=== PATIENT | female | born 1970 | race Caucasian/White ===

== ENCOUNTER 2019-12-09 08:03 | Outpatient (CLI) | payer OTHER, SELFPAY ==
--- NOTE | 2019-12-09 08:24 | MM_ITS ---
WS: [id number] BILATERAL DIGITAL SCREENING MAMMOGRAPHY WITH CAD CLINICAL INFORMATION: SCREENING HISTORY: Screening mammogram. No current complaints. COMPARISON: None. TECHNIQUE: Bilateral CC and MLO views. FINDINGS: The breasts are composed of heterogeneous fibroglandular density tissue, which can limit the detectio n of small underlying mass lesions. Nodular breast tissue bilaterally. Ovoid shaped asymmetric density lower inner left breast measuring 9 mm along the left posterior nippl e line. Recommend spot compression views and ultrasound if persistent. Right breast is unremarkable. MM/[place] [id number] IMPRESSION: BI-RADS: 0-Incomplete: Need additional imaging evaluation FOLLOW UP: Need Additional Imaging
== END 2019-12-09 08:04 | disposition home or self-care (01) ==
LOC: RADSHAW 08:16
PROVIDERS: PCP Family Medicine; Visit Provider Family Medicine
DX: Z12.31 Encounter for screening mammogram for malignant neoplasm of breast (principal)
CPT/HCPCS: 77067

== ENCOUNTER 2020-01-04 09:46 | Outpatient (CLI) | payer OTHER, SELFPAY ==
--- NOTE | 2020-01-04 09:52 | US_ITS ---
WS: [id number] ADDITIONAL VIEWS LEFT MAMMOGRAM LEFT BREAST ULTRASOUND HISTORY: LT BREAST ASYMMETRY COMPARISON: 12/09/2019 LEFT MAMMOGRAM: Spot compression views and true ML. Asymmetry becomes less apparent in the anterior LEFT breast central to the nipple on compression imag ing. Probably normal fibroglandular pattern. Due to the density within the breast ultrasound will als o be performed. No distortion. LEFT BREAST ULTRASOUND 2-D and color Doppler imaging submitted. LEFT breast ultrasound is directed to the 6:00 axis. There is an ovoid cyst measuring 5 x 2 x 4 mm. T his is in the area of the increased density and asymmetry on the mammogram. There are no suspicious m asses or calcifications. US/US breast LT limited* [id number] IMPRESSION: BI-RADS: 2-Benign FOLLOW UP: 1 Year Follow-up
== END 2020-01-04 09:47 | disposition home or self-care (01) ==
LOC: RADSHAW 09:49
PROVIDERS: PCP Family Medicine; Visit Provider Family Medicine
DX: N64.89 Other specified disorders of breast (principal)
CPT/HCPCS: 76642; 77065

== ENCOUNTER → 2020-04-11 14:11 | Outpatient (BNVA) | payer OTHER, SELFPAY | PROVIDERS: PCP Family Medicine; Visit Provider Internal Medicine | DX: M05.79 Rheumatoid arthritis with rheumatoid factor of multiple sites without organ or systems involvement (principal); R21 Rash and other nonspecific skin eruption; Z79.899 Other long term (current) drug therapy | CPT/HCPCS: 36415; 80053; 81003; 84443; 85025; 85651; 86140; 99213 ==

== ENCOUNTER → 2020-07-03 13:39 | Outpatient (BNVA) | payer OTHER, SELFPAY | PROVIDERS: PCP Family Medicine; Visit Provider Internal Medicine | DX: M05.79 Rheumatoid arthritis with rheumatoid factor of multiple sites without organ or systems involvement (principal); R76.8 Other specified abnormal immunological findings in serum; R21 Rash and other nonspecific skin eruption; Z79.899 Other long term (current) drug therapy | CPT/HCPCS: 36415; 80053; 85025; 85651; 86140; 99214 ==

== ENCOUNTER → 2020-10-04 14:49 | Outpatient (BNVA) | payer OTHER, SELFPAY | PROVIDERS: PCP Family Medicine; Visit Provider Internal Medicine | DX: M05.79 Rheumatoid arthritis with rheumatoid factor of multiple sites without organ or systems involvement (principal); R76.8 Other specified abnormal immunological findings in serum; Z79.899 Other long term (current) drug therapy | CPT/HCPCS: 99214 ==

== ENCOUNTER 2020-10-05 16:38 | Outpatient (CLI) | payer OTHER, SELFPAY ==
[2020-10-05 17:06] LABS: Basophils # 0.1 10^3/uL (0.0-0.1); Basophils % 1.3 %; Eosinophils # 0.1 10^3/uL (0.0-0.8); Eosinophils % 2.9 %; Hematocrit 45.4 % (37.0-47.0); Hemoglobin 15.5 g/dL (11.5-15.3); Lymphocytes % 45.4 %; Mean Corpuscular HGB Conc 34.1 g/dL (30.0-36.0); Mean Platelet Volume 11.6 fL (7.4-10.4); Monocytes # 0.5 10^3/uL (0.2-0.9); Monocytes % 11.2 %; Neutrophils # 1.74 10^3/uL (1.8-7.7); Nucleated Red Blood Cells % 0 %; Platelet Count 192 10^3/cmm (130-400); Red Blood Count 5.16 10^6/uL (4.1-5.3); Red Cell Distribution Width 11.7 % (12.1-15.1); White Blood Count 4.5 10^3/uL (4.0-10.0)
[2020-10-05 17:44] LABS: Alanine Aminotransferase 36 U/L (0-33); Albumin Level 4.3 g/dL (3.5-5.2); Alkaline Phosphatase 130 IU/L (35-105); Anion Gap 10.6 (5-19); Aspartate Amino Transferase 28 U/L (0-32); Blood Urea Nitrogen 11 mg/dL (6-20); C Reactive Protein 0.3 mg/L (0.0-4.9); Calcium 9.5 mg/dL (8.5-10.5); Carbon Dioxide 27 mmol/L (22-29); Chloride 103 mmol/L (98-107); Globulin 3.1 g/dL (1.3-4.6); Glomerular Filtration Rate 106.7 mL/min (90-130); Glucose 63 mg/dL (65-115); Osmolality Calculated 281 mOsm/kg (285-295); Potassium 3.6 mmol/L (3.5-5.1); Sodium 137 mmol/L (136-145); Total Bilirubin 0.3 mg/dL (0.15-1.2); Total Protein 7.4 g/dL (6.6-8.7)
[2020-10-05 18:21] LABS: Erythrocyte Sedimentation Rate 3 mm/hr (0-15)
== END 2020-10-05 16:39 | disposition home or self-care (01) ==
PROVIDERS: PCP Family Medicine; Visit Provider Internal Medicine
DX: R76.8 Other specified abnormal immunological findings in serum (principal)
CPT/HCPCS: 80053; 85025; 85651; 86140

== ENCOUNTER → 2020-12-25 10:46 | Outpatient (BNVA) | payer OTHER, SELFPAY | PROVIDERS: PCP Family Medicine; Visit Provider Internal Medicine Rheumatology | DX: Z79.899 Other long term (current) drug therapy (principal); M19.90 Unspecified osteoarthritis, unspecified site | CPT/HCPCS: 36415; 80053; 85025; 85651; 86140 ==

== ENCOUNTER → 2021-01-17 12:53 | Outpatient (BNVA) | payer OTHER, SELFPAY | PROVIDERS: PCP Family Medicine; Visit Provider Internal Medicine | DX: M05.79 Rheumatoid arthritis with rheumatoid factor of multiple sites without organ or systems involvement (principal); R76.8 Other specified abnormal immunological findings in serum; R21 Rash and other nonspecific skin eruption | CPT/HCPCS: 99213; 99214 ==

== ENCOUNTER → 2021-03-28 14:41 | Outpatient (BNVA) | payer OTHER, SELFPAY | PROVIDERS: PCP Family Medicine; Visit Provider Internal Medicine Rheumatology | DX: M05.79 Rheumatoid arthritis with rheumatoid factor of multiple sites without organ or systems involvement (principal); R76.8 Other specified abnormal immunological findings in serum; Z79.899 Other long term (current) drug therapy | CPT/HCPCS: 36415; 80053; 85025; 85651; 86140 ==

== ENCOUNTER → 2021-04-17 15:30 | Outpatient (BNVA) | payer OTHER, SELFPAY | PROVIDERS: PCP Family Medicine; Visit Provider Internal Medicine | DX: M05.79 Rheumatoid arthritis with rheumatoid factor of multiple sites without organ or systems involvement (principal); R76.8 Other specified abnormal immunological findings in serum; R53.83 Other fatigue; E56.1 Deficiency of vitamin K; I73.00 Raynaud's syndrome without gangrene | CPT/HCPCS: 99214 ==

== ENCOUNTER 2021-05-02 17:59 | Outpatient (CLI) | payer OTHER, SELFPAY ==
[2021-05-02 19:02] LABS: Alanine Aminotransferase 22 U/L (0-33); Albumin Level 4.3 g/dL (3.5-5.2); Alkaline Phosphatase 137 IU/L (35-105); Anion Gap 14.8 (5-19); Aspartate Amino Transferase 19 U/L (0-32); Blood Urea Nitrogen 12 mg/dL (6-20); Calcium 9.6 mg/dL (8.5-10.5); Carbon Dioxide 23 mmol/L (22-29); Chloride 102 mmol/L (98-107); Globulin 2.9 g/dL (1.3-4.6); Glomerular Filtration Rate 131.1 mL/min (90-130); Glucose 74 mg/dL (65-115); Osmolality Calculated 280 mOsm/kg (285-295); Potassium 3.8 mmol/L (3.5-5.1); Sodium 136 mmol/L (136-145); Thyroid Stimulating Hormone 2.04 uIU/mL (0.27-4.20); Total Bilirubin 0.3 mg/dL (0.15-1.2); Total Protein 7.2 g/dL (6.6-8.7)
== END 2021-05-02 18:00 | disposition home or self-care (01) ==
PROVIDERS: Internal Medicine; PCP Family Medicine; Visit Provider Surgery
DX: R53.83 Other fatigue (principal); R76.8 Other specified abnormal immunological findings in serum
CPT/HCPCS: 80053; 83735; 84443

== ENCOUNTER 2021-07-05 14:31 | Outpatient (CLI) | payer OTHER, SELFPAY ==
[2021-07-05 15:07] LABS: Basophils # 0.1 10^3/uL (0.0-0.1); Basophils % 1.6 %; Eosinophils # 0.1 10^3/uL (0.0-0.8); Eosinophils % 3.5 %; Hematocrit 43.1 % (37.0-47.0); Hemoglobin 14.3 g/dL (11.5-15.3); Lymphocytes # 1.5 10^3/uL (0.8-4.8); Lymphocytes % 39.3 %; Mean Corpuscular HGB Conc 33.2 g/dL (30.0-36.0); Mean Corpuscular Hemoglobin 29.2 pg (28.0-34.0); Mean Corpuscular Volume 88.1 fl (81-99); Mean Platelet Volume 11.4 fL (7.4-10.4); Monocytes # 0.4 10^3/uL (0.2-0.9); Monocytes % 11.8 %; Neutrophils # 1.63 10^3/uL (1.8-7.7); Neutrophils % 43.5 %; Nucleated Red Blood Cells % 0 %; Platelet Count 197 10^3/cmm (130-400); Red Blood Count 4.89 10^6/uL (4.1-5.3); Red Cell Distribution Width 11.9 % (12.1-15.1); White Blood Count 3.7 10^3/uL (4.0-10.0)
[2021-07-05 15:21] LABS: Alanine Aminotransferase 38 U/L (0-33); Albumin Level 4.1 g/dL (3.5-5.2); Alkaline Phosphatase 177 IU/L (35-105); Anion Gap 13.5 (5-19); Aspartate Amino Transferase 32 U/L (0-32); Blood Urea Nitrogen 9 mg/dL (6-20); C Reactive Protein 0.5 mg/L (0.0-4.9); Calcium 8.8 mg/dL (8.5-10.5); Carbon Dioxide 26 mmol/L (22-29); Chloride 102 mmol/L (98-107); Globulin 2.7 g/dL (1.3-4.6); Glomerular Filtration Rate 106.3 mL/min (90-130); Glucose 85 mg/dL (65-115); Osmolality Calculated 284 mOsm/kg (285-295); Potassium 3.5 mmol/L (3.5-5.1); Sodium 138 mmol/L (136-145); Total Bilirubin 0.3 mg/dL (0.15-1.2); Total Protein 6.8 g/dL (6.6-8.7)
[2021-07-08 12:38] LABS: Erythrocyte Sedimentation Rate 2 mm/hr (0-15)
== END 2021-07-05 14:32 | disposition home or self-care (01) ==
PROVIDERS: PCP Family Medicine; Visit Provider Internal Medicine
DX: M05.79 Rheumatoid arthritis with rheumatoid factor of multiple sites without organ or systems involvement (principal); R76.8 Other specified abnormal immunological findings in serum; Z79.899 Other long term (current) drug therapy
CPT/HCPCS: 80053; 85025; 85651; 86140

== ENCOUNTER 2022-01-16 10:41 | Outpatient (CLI) | payer OTHER, SELFPAY ==
[2022-01-16 11:10] LABS: Basophils # 0.1 10^3/uL (0.0-0.1); Basophils % 1.2 %; Eosinophils # 0.1 10^3/uL (0.0-0.8); Eosinophils % 3.1 %; Hematocrit 42.3 % (37.0-47.0); Hemoglobin 14.7 g/dL (11.5-15.3); Lymphocytes # 1.9 10^3/uL (0.8-4.8); Lymphocytes % 44.6 %; Mean Corpuscular HGB Conc 34.8 g/dL (30.0-36.0); Mean Corpuscular Hemoglobin 30.1 pg (28.0-34.0); Mean Corpuscular Volume 86.5 fl (81-99); Mean Platelet Volume 11.8 fL (7.4-10.4); Monocytes # 0.5 10^3/uL (0.2-0.9); Monocytes % 11.6 %; Neutrophils # 1.67 10^3/uL (1.8-7.7); Neutrophils % 39.3 %; Nucleated Red Blood Cells % 0 %; Platelet Count 195 10^3/cmm (130-400); Red Blood Count 4.89 10^6/uL (4.1-5.3); Red Cell Distribution Width 12.1 % (12.1-15.1); White Blood Count 4.2 10^3/uL (4.0-10.0)
[2022-01-16 11:28] LABS: Alanine Aminotransferase 39 U/L (0-33); Albumin Level 4.6 g/dL (3.5-5.2); Alkaline Phosphatase 161 IU/L (35-105); Anion Gap 13.5 (5-19); Aspartate Amino Transferase 25 U/L (0-32); Blood Urea Nitrogen 10 mg/dL (6-20); Calcium 9.5 mg/dL (8.5-10.5); Carbon Dioxide 25 mmol/L (22-29); Chloride 103 mmol/L (98-107); Globulin 2.7 g/dL (1.3-4.6); Glomerular Filtration Rate 131.1 mL/min (90-130); Glucose 91 mg/dL (65-115); Osmolality Calculated 285 mOsm/kg (285-295); Potassium 3.5 mmol/L (3.5-5.1); Sodium 138 mmol/L (136-145); Total Bilirubin 0.5 mg/dL (0.15-1.2); Total Protein 7.3 g/dL (6.6-8.7)
[2022-01-16 11:49] LABS: Erythrocyte Sedimentation Rate 6 mm/hr (0-15)
== END 2022-01-16 10:42 | disposition home or self-care (01) ==
PROVIDERS: PCP Family Medicine; Visit Provider Internal Medicine
DX: M05.79 Rheumatoid arthritis with rheumatoid factor of multiple sites without organ or systems involvement (principal); R53.83 Other fatigue; R76.8 Other specified abnormal immunological findings in serum; R21 Rash and other nonspecific skin eruption
CPT/HCPCS: 80053; 85025; 85651; 86140

== ENCOUNTER → 2022-04-21 15:45 | Outpatient (BNVA) | payer OTHER, SELFPAY | PROVIDERS: PCP Family Medicine; Visit Provider Internal Medicine | DX: R53.83 Other fatigue (principal); R76.8 Other specified abnormal immunological findings in serum; M05.79 Rheumatoid arthritis with rheumatoid factor of multiple sites without organ or systems involvement; R21 Rash and other nonspecific skin eruption; R74.01 Elevation of levels of liver transaminase levels; D72.819 Decreased white blood cell count, unspecified | CPT/HCPCS: 36415; 80053; 85025; 85651; 86140 ==

== ENCOUNTER → 2022-08-06 11:24 | Outpatient (BNVA) | payer OTHER, SELFPAY | PROVIDERS: PCP Family Medicine; Visit Provider Internal Medicine | DX: K63.5 Polyp of colon (principal); M05.79 Rheumatoid arthritis with rheumatoid factor of multiple sites without organ or systems involvement; R76.8 Other specified abnormal immunological findings in serum; R74.01 Elevation of levels of liver transaminase levels; D72.819 Decreased white blood cell count, unspecified | CPT/HCPCS: 36415; 80053; 85025; 85651; 86140 ==

== ENCOUNTER 2022-10-31 10:56 | Outpatient (CLI) | payer OTHER, SELFPAY ==
[2022-10-31 11:44] LABS: Basophils # 0.1 10^3/uL (0.0-0.1); Basophils % 1.3 %; Eosinophils # 0.2 10^3/uL (0.0-0.8); Eosinophils % 3.6 %; Hematocrit 42.7 % (37.0-47.0); Hemoglobin 14.4 g/dL (11.5-15.3); Lymphocytes # 2.1 10^3/uL (0.8-4.8); Lymphocytes % 37.7 %; Mean Corpuscular HGB Conc 33.7 g/dL (30.0-36.0); Mean Corpuscular Hemoglobin 29.5 pg (28.0-34.0); Mean Corpuscular Volume 87.5 fl (81-99); Mean Platelet Volume 11.1 fL (7.4-10.4); Monocytes # 0.5 10^3/uL (0.2-0.9); Monocytes % 9.7 %; Neutrophils # 2.62 10^3/uL (1.8-7.7); Neutrophils % 47.2 %; Nucleated Red Blood Cells % 0 %; Platelet Count 194 10^3/cmm (130-400); Red Blood Count 4.88 10^6/uL (4.1-5.3); White Blood Count 5.6 10^3/uL (4.0-10.0)
[2022-10-31 12:08] LABS: Erythrocyte Sedimentation Rate 9 mm/hr (0-15)
[2022-10-31 12:21] LABS: Alanine Aminotransferase 41 U/L (0-33); Albumin Level 4.4 g/dL (3.5-5.2); Alkaline Phosphatase 183 U/L (35-105); Anion Gap 15.3 (5-19); Aspartate Amino Transferase 29 U/L (0-32); Blood Urea Nitrogen 10 mg/dL (6-20); Calcium 9.4 mg/dL (8.5-10.5); Carbon Dioxide 25 mmol/L (22-29); Chloride 104 mmol/L (98-107); Glucose 85 mg/dL (65-115); Osmolality Calculated 290 mOsm/kg (285-295); Potassium 3.3 mmol/L (3.5-5.1); Sodium 141 mmol/L (136-145); Total Bilirubin 0.4 mg/dL (0.15-1.2); Total Protein 7.4 g/dL (6.6-8.7)
== END 2022-10-31 10:57 | disposition home or self-care (01) ==
LOC: LAB 11:02
PROVIDERS: PCP Family Medicine; Visit Provider Internal Medicine
DX: M05.79 Rheumatoid arthritis with rheumatoid factor of multiple sites without organ or systems involvement (principal); R76.8 Other specified abnormal immunological findings in serum
CPT/HCPCS: 80053; 85025; 85651; 86140

== ENCOUNTER 2022-11-06 09:07 | Outpatient (CLI) | payer OTHER, SELFPAY ==
[2022-11-06 10:23] LABS: Chol HDL Ratio 4.53 mg/dL (0.0-4.40); Cholesterol 195 mg/dL (0-200); HDL Cholesterol 43 mg/dL (60-100); LDL Cholesterol Calculated 131 mg/dL (50-129); LDL HDL Ratio 3.05 RATIO (0.00-3.22); Triglycerides 107 mg/dL (0-150)
== END 2022-11-06 09:08 | disposition home or self-care (01) ==
LOC: LAB 09:10
PROVIDERS: PCP Family Medicine; Visit Provider Internal Medicine
DX: R74.01 Elevation of levels of liver transaminase levels (principal)
CPT/HCPCS: 80061

== ENCOUNTER 2022-12-08 15:34 | Emergency (ER) | payer OTHER, SELFPAY ==
[2022-12-08 16:04] VITALS: BP 184/95; PULSE 76; RESP 16; TEMP 36.6; O2SAT 98; BMI 31.6
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
== END 2022-12-08 17:08 | disposition home or self-care (01) ==
PROVIDERS: Emergency Provider Physician Assistant; PCP Family Medicine
DX: Z04.1 Encounter for examination and observation following transport accident (principal); V89.2XXA Person injured in unspecified motor-vehicle accident, traffic, initial encounter
CPT/HCPCS: 99283

== ENCOUNTER 2023-03-11 12:04 | Outpatient (CLI) | payer OTHER, SELFPAY ==
--- NOTE | 2023-03-11 12:17 | XRR_ITS ---
PROCEDURE INFORMATION: Exam: XR Right Foot Exam date and time: 03/11/2023 12:24 PM Age: 52 years old Clinical indication: Patient HX: Pain and swelling in right foot that started 2 weeks ago; Additional info: Right foot pain TECHNIQUE: Imaging protocol: Radiologic exam of the right foot. Views: 3 or more views. COMPARISON: No relevant prior studies available. FINDINGS: There is mild soft tissue swelling surrounding the distal aspect of the 5th metatarsal with subtle osteopenia of the distal metatarsal head as well as some small rounded radiolucencies. There is no bone destruction evident. Findings raise possibility of early stage osteomyelitis which should be correlated clinically and better assessed on MRI examination of the foot. Remaining osseous structures and joint surfaces are unremarkable. XR/XR foot RT min 3V* [id number] IMPRESSION: Changes involving the distal head of the 5th metatarsal concerning for possible osteomyelitis as discussed above.
== END 2023-03-11 12:05 | disposition home or self-care (01) ==
LOC: RAD 12:13 → LAB 17:44
PROVIDERS: PCP Family Medicine; Visit Provider Clinical Nurse Specialist Adult Health
DX: M79.671 Pain in right foot (principal); M86.9 Osteomyelitis, unspecified; M05.79 Rheumatoid arthritis with rheumatoid factor of multiple sites without organ or systems involvement; R76.8 Other specified abnormal immunological findings in serum
CPT/HCPCS: 36415; 73630; 80053; 85025; 85651; 86140; 87040

== ENCOUNTER → 2023-04-15 16:21 | Outpatient (BNVA) | payer OTHER, SELFPAY | PROVIDERS: PCP Family Medicine; Visit Provider Internal Medicine | DX: M06.9 Rheumatoid arthritis, unspecified (principal); S92.324D Nondisplaced fracture of second metatarsal bone, right foot, subsequent encounter for fracture with routine healing; X58.XXXD Exposure to other specified factors, subsequent encounter | CPT/HCPCS: 36415; 73620; 85025; 85651; 86140 ==

== ENCOUNTER → 2023-07-06 11:21 | Outpatient (BNVA) | payer OTHER, SELFPAY | PROVIDERS: PCP Family Medicine; Visit Provider Clinical Nurse Specialist Adult Health | DX: R30.0 Dysuria (principal) | CPT/HCPCS: 81000 ==

== ENCOUNTER → 2023-07-14 14:18 | Outpatient (BNVA) | payer OTHER, SELFPAY | PROVIDERS: PCP Family Medicine; Visit Provider Internal Medicine | DX: M79.671 Pain in right foot (principal); D72.819 Decreased white blood cell count, unspecified; R53.83 Other fatigue; R74.01 Elevation of levels of liver transaminase levels | CPT/HCPCS: 36415; 73620; 80053; 85025 ==

== ENCOUNTER 2023-09-29 10:53 | Outpatient (CLI) | payer OTHER, SELFPAY ==
--- NOTE | 2023-09-29 10:56 | XR_ITS ---
WS: [id number] Exam: XR knee LT 3V* [id number] Date/Time of Exam: 09/29/2023 10:57 AM Reason For Exam: Left knee pain No fracture or dislocation noted. The joint compartments are well-maintained. Marginal osteophyte leonard ng the medial femoral condyle. No joint effusion. Mild spurring of the posterior patella. IMPRESSION1. No fracture or joint effusion. 2. Marginal osteophytes along the medial joint compartment as well as the patella.
--- NOTE | 2023-09-29 10:56 | XR_ITS ---
WS: [id number] Exam: XR foot RT min 3V* [id number] Date/Time of Exam: 09/29/2023 10:57 AM Reason For Exam: Right foot fracture - Follow up on healing Comparison 07/14/2023. Functionally healed fracture of the second metatarsal noted with extensive callus. No positional bravo ge. The remainder of the RIGHT foot is intact. Minimal degenerative changes. IMPRESSION: 1. Functionally healed fracture of the second metatarsal remaining in good alignment.
== END 2023-09-29 10:54 | disposition home or self-care (01) ==
LOC: RAD 10:54
PROVIDERS: PCP Family Medicine; Visit Provider Family Medicine
DX: S92.901A Unspecified fracture of right foot, initial encounter for closed fracture (principal); X58.XXXA Exposure to other specified factors, initial encounter; M25.562 Pain in left knee; M25.762 Osteophyte, left knee
CPT/HCPCS: 73562; 73630

== ENCOUNTER 2023-10-12 13:12 | Outpatient (CLI) | payer OTHER, SELFPAY ==
--- NOTE | 2023-10-12 13:30 | XR_ITS ---
WS: [id number] DEXA (DUAL ENERGY X-RAY ABSORPTIOMETRY) Bone mineral density was performed using a Klypper machine. HISTORY: Postmenopausal, foot fracture, Sjogren's COMPARISON: None available. Lumbar spine BMD (L1-L4): 1.140 g/cm2 T score: -0.3 Z score: -0.7 Total hip BMD: Left: 1.019 g/cm2. T score: 0.1 Z score: 0.0 Right: 1.013 g/cm2. T score: 0.0 Z score: -0.1 10 year probability of a major osteoporotic fracture is 10.2%. IMPRESSION: NORMAL BONE MINERAL DENSITY based upon the WHO classification for females.
== END 2023-10-12 13:13 | disposition home or self-care (01) ==
LOC: RAD 13:13
PROVIDERS: PCP Family Medicine; Visit Provider Family Medicine
DX: Z78.0 Asymptomatic menopausal state (principal)
CPT/HCPCS: 77080

== ENCOUNTER 2023-10-16 07:52 | Outpatient (CLI) | payer OTHER, SELFPAY ==
--- NOTE | 2023-10-16 08:00 | MM_ITS ---
WS: [id number] SCREENING DIGITAL TOMOSYNTHESIS MAMMOGRAM WITH CAD HISTORY: Screening COMPARISON: 12/09/2019, 01/04/2020 Bilateral CC and MLO with tomosynthesis views submitted. Synthetic mammography reviewed. Computer aid ed detection analyzed. Breast composition: There are scattered areas of fibroglandular density. No suspicious masses, microc alcifications or architectural distortion. There is an ovoid mass in the mid LEFT breast just lateral to the nipple line measuring 9 mm. This mass is more lateral than the cyst described on the prior st udy. Recommend follow-up ultrasound evaluation. RIGHT breast is negative. IMPRESSION: MM/[place] [id number] BI-RADS: 0-Incomplete: Need additional imaging evaluation FOLLOW UP: Need Additional Imaging Recommendation: LEFT breast ultrasound, limited. 9 mm ovoid nodule just lateral and inferior to the nipple, approximately 4:00.
== END 2023-10-16 07:53 | disposition home or self-care (01) ==
LOC: RAD 07:53
PROVIDERS: PCP Family Medicine; Visit Provider Family Medicine
DX: Z12.31 Encounter for screening mammogram for malignant neoplasm of breast (principal); R92.323 Mammographic fibroglandular density, bilateral breasts; N63.14 Unspecified lump in the right breast, lower inner quadrant
CPT/HCPCS: 77063; 77067

== ENCOUNTER 2023-11-03 08:36 | Outpatient (CLI) | payer OTHER, SELFPAY ==
[2023-11-03 09:32] LABS: Basophils # 0.1 10^3/uL (0.0-0.1); Basophils % 1.2 %; Eosinophils # 0.1 10^3/uL (0.0-0.8); Eosinophils % 2.5 %; Lymphocytes # 1.6 10^3/uL (0.8-4.8); Lymphocytes % 37.3 %; Mean Corpuscular HGB Conc 34.5 g/dL (30-55); Mean Corpuscular Hemoglobin 29.2 pg (27-33); Mean Corpuscular Volume 84.7 fl (85-98); Mean Platelet Volume 11.5 fL (7.4-10.4); Monocytes # 0.6 10^3/uL (0.2-0.9); Monocytes % 12.9 %; Neutrophils # 1.99 10^3/uL (1.8-7.7); Neutrophils % 45.9 %; Nucleated Red Blood Cells % 0 %; Platelet Count 188 10^3/cmm (157-399); Red Blood Count 4.96 10^6/uL (3.85-5.65); Red Cell Distribution Width 11.9 % (12.1-15.1); White Blood Count 4.34 10^3/uL (3.29-11.43)
[2023-11-03 09:52] LABS: Alanine Aminotransferase 24 U/L (0-33); Albumin Level 4.3 g/dL (3.5-5.2); Alkaline Phosphatase 172 U/L (35-105); Anion Gap 13.2 (5-19); Aspartate Amino Transferase 19 U/L (0-32); Blood Urea Nitrogen 15 mg/dL (6-20); Calcium 9.8 mg/dL (8.5-10.5); Carbon Dioxide 26 mmol/L (22-29); Chloride 96 mmol/L (98-107); Globulin 2.9 g/dL (1.3-4.6); Glomerular Filtration Rate 88.2 mL/min (90-130); Glucose 86 mg/dL (65-115); Osmolality Calculated 274 mOsm/kg (285-295); Potassium 3.2 mmol/L (3.5-5.1); Sodium 132 mmol/L (136-145); Total Bilirubin 0.5 mg/dL (0.15-1.2); Total Protein 7.2 g/dL (6.6-8.7)
== END 2023-11-03 08:37 | disposition home or self-care (01) ==
LOC: LAB 08:37
PROVIDERS: PCP Family Medicine; Visit Provider Internal Medicine
DX: M79.671 Pain in right foot (principal); D72.819 Decreased white blood cell count, unspecified; R74.01 Elevation of levels of liver transaminase levels
CPT/HCPCS: 36415; 80053; 85025

== ENCOUNTER 2023-11-06 06:58 | Outpatient (CLI) | payer OTHER, SELFPAY ==
--- NOTE | 2023-11-06 07:15 | MR_ITS ---
WS: [id number] MRI LEFT KNEE HISTORY: Left knee pain - concern for ligament tear (PCL) COMPARISON: Radiographs 09/29/2023 Anterior cruciate ligament: Diffuse abnormal signal throughout the ACL with thickening and indistinct ness of the anterior and posterior bundles. This is most consistent with mucoid degeneration. The geovanna entation of the fibers is appropriate. No full-thickness tear is identified. There is an ill-defined cluster of cystic nodules posterior to the proximal ACL measuring 1.6 x 1.0 cm. This may be part of t he extensive mucoid degeneration within the ACL or a small ganglion. Posterior cruciate ligament: Intact. Medial collateral ligament: Displaced from the joint line by an extruded meniscus and osteophytes. Me niscus is extruded 4.5 mm. Posterior lateral corner structures: Intact. Medial menisci: Complex tear involving the posterior horn. Horizontal and radial components. The enti re meniscus is abnormal signal and smaller caliber than the anterior horn. Anterior horn is normal. Lateral meniscus: Intact. Normal signal, size and shape. Extensor mechanism: Distal quadriceps tendon and patellar tendons are intact. Fluid and soft tissue: Very small suprapatellar joint effusion. Moderate size Mello's cyst. Osseous and articular structures: Patellofemoral compartment: Moderate narrowing of patellofemoral joint space with moderate chondromal acia. Slightly greater loss of cartilage in the medial patellar facet. Medial compartment: Moderate narrowing with marginal osteophytes. Mild chondromalacia. Subchondral cy stic changes extend in the weightbearing surface of the femoral condyle. This is at the site of the r adial tear within the posterior meniscus. Lateral compartment: Minimal narrowing. No significant loss of cartilage. IMPRESSION: 1. Extensive mucoid degeneration throughout the ACL. No tear. 2. Contiguous and inseparable from the proximal posterior ACL is an ill-defined cluster of cystic no dules measuring 1.6 x 1.0 cm. This may be a component of the mucoid degeneration but a small ganglion may appear similar. 3. No PCL tear. 4. Complex tear posterior horn medial meniscus. There are both horizontal and radial tears. 5. MCL is displaced from the joint line by an extruded meniscus and osteophytes. 6. Moderate narrowing patellofemoral joint space with chondromalacia. Greatest involving the medial patellar facet. 7. Moderate narrowing medial compartment with marginal osteophytes and chondromalacia. Subchondral c ystic changes weightbearing surface of the femoral condyle. 8. Moderate-sized Mello's cyst.
== END 2023-11-06 06:59 | disposition home or self-care (01) ==
LOC: RAD 06:58
PROVIDERS: PCP Family Medicine; Visit Provider Family Medicine
DX: S83.232A Complex tear of medial meniscus, current injury, left knee, initial encounter (principal); M25.762 Osteophyte, left knee; M94.262 Chondromalacia, left knee; M71.22 Synovial cyst of popliteal space [Baker], left knee; X58.XXXA Exposure to other specified factors, initial encounter
CPT/HCPCS: 73721

== ENCOUNTER 2023-12-14 08:10 | Outpatient (CLI) | payer OTHER, SELFPAY ==
--- NOTE | 2023-12-14 08:17 | US_ITS ---
WS: [id number] ULTRASOUND LEFT BREAST HISTORY: ABNORMAL MAMMO COMPARISON: 01/04/2020, 10/16/2023 TECHNIQUE: 2-D and Doppler. No mass identified in the LEFT breast to correspond to the mammographic abnormality. There is dense f ibroglandular tissue. No shadowing mass. No distortion. Mammographic findings are probably all relate d to dense fibroglandular superimposed tissue. US/US breast LT limited* [id number] IMPRESSION: BI-RADS: 2-Benign FOLLOW-UP: 1 Year Follow-up Recommend return to annual screening mammography. No persistent abnormality not ed on the ultrasound.
== END 2023-12-14 08:11 | disposition home or self-care (01) ==
LOC: RAD 08:10
PROVIDERS: PCP Family Medicine; Visit Provider Family Medicine
DX: R92.8 Other abnormal and inconclusive findings on diagnostic imaging of breast (principal); R92.322 Mammographic fibroglandular density, left breast
CPT/HCPCS: 76642

== ENCOUNTER → 2024-01-22 10:14 | Outpatient (BNVA) | payer OTHER, SELFPAY | PROVIDERS: PCP Family Medicine; Visit Provider Student in an Organized Health Care Education/Training Program | DX: M17.11 Unilateral primary osteoarthritis, right knee; S83.242A Other tear of medial meniscus, current injury, left knee, initial encounter; X50.9XXA Other and unspecified overexertion or strenuous movements or postures, initial encounter | CPT/HCPCS: 73560; 73565 ==

== ENCOUNTER 2024-01-29 12:37 | Outpatient (CLI) | payer OTHER, SELFPAY | END 2024-01-29 12:38 | disposition home or self-care (01) | LOC: SPT 12:38 | PROVIDERS: PCP Family Medicine; Visit Provider Student in an Organized Health Care Education/Training Program | DX: Z46.89 Encounter for fitting and adjustment of other specified devices (principal); S83.2 Tear of meniscus, current injury; X58.XXXS Exposure to other specified factors, sequela; M17.12 Unilateral primary osteoarthritis, left knee | CPT/HCPCS: 97760; L1852 ==

== ENCOUNTER → 2024-07-28 15:15 | Outpatient (BNVA) | payer OTHER, SELFPAY | PROVIDERS: PCP Family Medicine; Visit Provider Family Medicine | DX: L51.9 Erythema multiforme, unspecified (principal); F33.8 Other recurrent depressive disorders; Z51.81 Encounter for therapeutic drug level monitoring | CPT/HCPCS: 80053; 85025; 85651; 86141 ==

== ENCOUNTER → 2024-11-07 12:26 | Outpatient (BNVA) | payer OTHER, SELFPAY | PROVIDERS: PCP Family Medicine; Visit Provider Family Medicine | DX: R21 Rash and other nonspecific skin eruption (principal); L51.9 Erythema multiforme, unspecified | CPT/HCPCS: 86003; 86008 ==